=== PATIENT | male | born 1990 | race Caucasian/White ===

== ENCOUNTER 2017-09-12 20:37 | Emergency (ER) | payer BC ==
[2017-09-12] MEDS: Sodium Chloride 0.9% 1,000 ML IV SCH (21:38)
[2017-09-12] MEDS: Famotidine 20 MG/2 ML SDV IVPUSH ONE (21:39)
[2017-09-12] MEDS: Ketorolac 30 MG/ML SDV IVPUSH SCH (21:39)
[2017-09-12] MEDS: Ondansetron 4 MG/2 ML SDV IVPUSH ONE (21:39)
[2017-09-12] MEDS: Sodium Chloride 0.9% 10 ML Syringe FLUSH PRN (21:39)
--- NOTE | 2017-09-12 22:05 | EDM.PDOC ---
ED HPI GENERAL MEDICAL PROBLEM - General Chief Complaint: Abdominal Pain Stated Complaint: PAIN IN LEFT LOWER BACK AND FRONT Time Seen by Provider: 09/12/17 21:09 Source of Information: Reports: Patient, RN Notes Reviewed - History of Present Illness INITIAL COMMENTS - FREE TEXT/NARRATIVE: 26-year-old male comes in with abdominal pain that started this past afternoon about 4 hours ago. His been primarily upper mid abdomen and also left lower abdomen. Been quite nauseated with this but not vomiting. He has had several loose diarrhea type stools. He also has had some pain going to the back on the left side. No voiding symptomatology. Some mild chills but no obvious fever. No chest pain or difficulty breathing. Left Lower Back Pain Score (Numeric/FACES): 5 - Related Data Allergies Allergy/AdvReac Type Severity Reaction Status Date / Time No Known Allergies Allergy Verified 09/12/17 20:45 Home Meds: Home Meds . [No Known Home Meds] 09/12/17 [History] Past Medical History - Past Health History Medical/Surgical History: Denies Medical/Surgical History Social & Family History - Tobacco Use Smoking Status *Q: Current Every Day Smoker Years of Tobacco use: 12 Packs/Tins Daily: 0.1 - Recreational Drug Use Recreational Drug Use: No ED ROS GENERAL - Review of Systems Review Of Systems: See Below Constitutional: Reports: Chills. Denies: Fever HEENT: Reports: No Symptoms Respiratory: Denies: Shortness of Breath, Pleuritic Chest Pain Cardiovascular: Denies: Chest Pain GI/Abdominal: Reports: Abdominal Pain, Diarrhea, Nausea. Denies: Vomiting : Reports: No Symptoms Musculoskeletal: Reports: Back Pain Skin: Reports: No Symptoms Neurological: Reports: No Symptoms ED EXAM, GI/ABD - Physical Exam Exam: See Below General Appearance: Alert, Mild Distress Throat/Mouth: Normal Inspection, Normal Oropharynx, Other Neck: Supple (Oral mucosa mildly dry), Full Range of Motion Respiratory/Chest: No Respiratory Distress, Lungs Clear, Normal Breath Sounds Cardiovascular: Regular Rate, Rhythm GI/Abdominal Exam: Tender (Mild tenderness upper mid abdomen, mid abdomen, left lower quadrant, right lower quadrant nontender, right upper quadrant nontender) . No: Guarding, Rebound Back Exam: No: CVA Tenderness (L), CVA Tenderness (R) Extremities: Normal Inspection, Normal Range of Motion Neurological: Alert, Oriented, No Motor/Sensory Deficits Skin Exam: Warm, Dry, Normal Color Course - Vital Signs Last Recorded V/S: Last Vital Signs Temp 97.1 F 09/12/17 20:43 Pulse 72 09/12/17 20:43 Resp 16 09/12/17 20:43 BP 162/87 H 09/12/17 20:43 Pulse Ox 100 09/12/17 20:43 - Orders/Labs/Meds Orders: Active Orders 24 hr Category Date Time Status Peripheral IV Care [RC] . DIRECTED Care 09/12/17 21:20 Active Ketorolac [Toradol] Med 09/12/17 21:30 Active 30 mg IVPUSH ONETIME Sodium Chloride 0.9% [Normal Saline] 1,000 ml Med 09/12/17 21:30 Active IV ONETIME Sodium Chloride 0.9% [Saline Flush] Med 09/12/17 21:19 Active 10 ml FLUSH ASDIRECTED PRN Peripheral IV Insertion Adult [OM.PC] Stat Oth 09/12/17 21:18 Ordered Medication Orders Sodium Chloride (Normal Saline) 1,000 mls @ 999 mls/hr IV ONETIME [facility] Last Admin: 09/12/17 21:38 Dose: 999 mls/hr Ketorolac Tromethamine (Toradol) 30 mg IVPUSH ONETIME [facility] Last Admin: 09/12/17 21:39 Dose: 30 mg Sodium Chloride (Saline Flush) 10 ml FLUSH ASDIRECTED PRN PRN Reason: Keep Vein Open Last Admin: 09/12/17 21:39 Dose: 10 ml Labs: Laboratory Tests 09/12/17 Range/Units 21:29 Urine Color Light yellow (Yellow) Urine Appearance Clear (Clear) Urine pH 7.0 (5.0-8.0) Ur Specific [place] 1.010 (1.005-1.030) Urine Protein Negative (Negative) Urine Glucose (UA) Negative (Negative) Urine Ketones Negative (Negative) Urine Occult Blood Trace-lysed H (Negative) Urine Nitrite Negative (Negative) Urine Bilirubin Negative (Negative) Urine Urobilinogen 0.2 (0.2-1.0) Ur Leukocyte Esterase Negative (Negative) Urine RBC Not seen (0-5) /hpf Urine WBC Not seen (0-5) /hpf Ur Epithelial Cells 0-5 (0-5) /hpf Urine Bacteria Not seen (FEW) /hpf Urine Mucus Not seen (FEW) /hpf Meds: Medications Generic Name Dose Route Start Last Admin Trade Name Freq PRN Reason Stop Dose Admin Sodium Chloride 1,000 mls @ 999 mls/hr 09/12/17 21:30 09/12/17 21:38 Normal Saline IV 999 mls/hr ONETIME [facility]IOLET Administration Ketorolac Tromethamine 30 mg 09/12/17 21:30 09/12/17 21:39 Toradol IVPUSH 30 mg ONETIME [facility]IOLET Administration Sodium Chloride 10 ml 09/12/17 21:19 09/12/17 21:39 Saline Flush FLUSH 10 ml ASDIRECTED PRN Administration Keep Vein Open Discontinued Medications Generic Name Dose Route Start Last Admin Trade Name Freq PRN Reason Stop Dose Admin Famotidine 20 mg 09/12/17 21:19 09/12/17 21:39 Pepcid IVPUSH 09/12/17 21:20 20 mg ONETIME ONE Administration Ondansetron HCl 4 mg 09/12/17 21:19 09/12/17 21:39 Zofran IVPUSH 09/12/17 21:20 4 mg ONETIME ONE Administration - Re-Assessments/Exams Free Text/Narrative Re-Assessment/Exam: 09/12/17 22:54. Feeling much better after IV Zofran, Toradol, 1 L of fluid. Urine looks good. Discharge instructions as documented Departure - Departure Time of Disposition: 22:52 Disposition: Home, Self-Care 01 Condition: Fair Clinical Impression: Abdominal pain Qualifiers: Abdominal location: left lower quadrant Qualified Code(s): R10.32 - Left lower quadrant pain Diarrhea Qualifiers: Diarrhea type: unspecified type Qualified Code(s): R19.7 - Diarrhea, unspecified - Discharge Information Referrals: PCP,None [Primary Care Provider] - Forms: ED Department Discharge Additional Instructions: Clear liquids until tomorrow afternoon, then very careful bland diet as tolerated, avoid milk and dairy products for at least a couple of days. Probiotic 3 times daily for the next 5 days or until after symptoms have completely resolved. Follow-up clinic if not much better within 1-2 days as expected, return to ED as needed if symptoms worsening in any way - My Orders Last 24 Hours: My Active Orders 09/12/17 21:18 Peripheral IV Insertion Adult [OM.PC] Stat 09/12/17 21:19 Sodium Chloride 0.9% [Saline Flush] 10 ml FLUSH ASDIRECTED PRN 09/12/17 21:20 Peripheral IV Care [RC] . DIRECTED 09/12/17 21:30 Ketorolac [Toradol] 30 mg IVPUSH ONETIME Sodium Chloride 0.9% [Normal Saline] 1,000 ml IV ONETIME - Assessment/Plan Last 24 Hours: My Active Orders 09/12/17 21:18 Peripheral IV Insertion Adult [OM.PC] Stat 09/12/17 21:19 Sodium Chloride 0.9% [Saline Flush] 10 ml FLUSH ASDIRECTED PRN 09/12/17 21:20 Peripheral IV Care [RC] . DIRECTED 09/12/17 21:30 Ketorolac [Toradol] 30 mg IVPUSH ONETIME Sodium Chloride 0.9% [Normal Saline] 1,000 ml IV ONETIME
== END 2017-09-12 23:01 | disposition home or self-care (01) ==
LOC: JD.ED 20:37
DX: R10.32 Left lower quadrant pain (principal); R19.7 Diarrhea, unspecified; F17.210 Nicotine dependence, cigarettes, uncomplicated
CPT/HCPCS: 81001; 96361; 96374; 96375; 99284; J1885; J2405; J7040; J7050; 99283